=== PATIENT | female | born 1990 | race Caucasian/White ===

== ENCOUNTER 2021-04-29 12:41 | Emergency (ER) | payer OTHER, SELFPAY ==
--- NOTE | 2021-04-29 13:51 | ED.URI ---
HPI - URI/Sore Throat General Chief Complaint: Upper Respiratory Infection Stated Complaint: Chest Congestion Time Seen by Provider: 04/29/21 13:55 Source: patient Mode of arrival: ambulatory Limitations: no limitations History of Present Illness HPI Narrative: 31-year-old female presented for complaint of chest congestion worsening over the past few days. She endorses she was Covid positive about 3 weeks ago. She has been using an inhaler, and a eval with our Covid testfter which she developed thrush, and has a prescription to start nystatin. Endorses raw throat, denies headache, dizziness, body aches, sob, fatigue, fever or chills at this time. Related Data Home Medications Medication Instructions Recorded Confirmed cranberry fruit concentrate 250 mg 250 mg PO TID 06/16/20 04/29/21 chewable tablet fluticasone propionate [Flovent INHALATION 04/29/21 HFA] Allergies Allergy/AdvReac Type Severity Reaction Status Date / Time No Known Allergies Allergy Verified 04/29/21 13:07 Review of Systems Review of Systems: CONSTITUTIONAL: Denies malaise, chills, sweats, fever. EYES: Denies visual changes, redness, or discharge. ENT: Endorses chest congestion provider but this is likely viral illness, no antibiotic is needed at this time. Treatment is aimed toward your specific symptoms. You must treat your symptoms in order to feel better while the virus runs it's course. Recommend antihistamine such as Benadryl at night time and Claritin/Zyrtec/Meryl during the day Use inhaler as needed for cough, wheezing, shortness of breath or chest tightness. -Hot steamy showers in the morning to help open up your sinuses -Hot tea with lemon and honey. A teaspoon of honey may help as a cough suppressant. -Increase fluid intake Frequent hand washing or hand paste thinner is one of the best ways to prevent spread of infection. Forearm are not Covid too many tomorrow denies rhinorrhea, sinus pain, otalgia and sore throat. CARDIOVASCULAR: Denies chest pain, palpitations, or edema. RESPIRATORY: Reports cough, post nasal drainage. Denies dyspnea. GASTROINTESTINAL: Denies abdominal pain, nausea, vomiting, diarrhea SKIN: Denies rash or itching. MUSCULOSKELETAL: Denies myalgia. NEUROLOGIC: Denies headache. [facility] Past Medical History Medical History Acid reflux Asthma History of UTI Surgical History Surgical History [place] teeth removed Family History Family History Mother Carcinoma of colon patient states she has regular colonoscopies due to history Grandparent Carcinoma of colon Grandparent Cerebrovascular accident Social History Social History Smoking status: Never smoker Alcohol intake: current Drinks per week: 4 Substance use: never Exam Narrative: GENERAL: Well-appearing, well-nourished, and in no acute distress. HEAD: Normocephalic, atraumatic. EYES: EOMI. No redness or drainage. Conjunctivae normal. ENT: Mucous membranes pink and moist. No rhinorrhea. TMs normal bilaterally. Throat normal. Uvula midline. NECK: Normal AROM. Supple. No lymphadenopathy. CHEST: No respiratory distress. Clear to auscultation. HEART: Regular rate and rhythm. No murmur appreciated. Normal peripheral pulses. ABDOMEN: Soft, nontender, nondistended, normal active bowel sounds. MUSCULOSKELETAL: No bony tenderness. EXTREMITIES: Normal range of motion. No edema. SKIN: Warm, dry, no rash. Capillary refill normal. Normal skin turgor. NEURO: No focal deficits. Alert and oriented x3. Gait steady. PSYCH: Normal affect. No signs of depression or anxiety. Course Course Emergency Course: Patient is aware of diagnosis, understands and agrees to treatment plan. Anticipatory guidance given. Jc
[2021-04-29 14:28] VITALS: BP 144/78; PULSE 108; RESP 16; TEMP 36.9; O2SAT 100
== END 2021-04-29 14:20 | disposition home or self-care (01) ==
PROVIDERS: Emergency Provider Nurse Practitioner Family; PCP Family Medicine
DX: U09.9 Post COVID-19 condition, unspecified (principal); J02.9 Acute pharyngitis, unspecified; K21.9 Gastro-esophageal reflux disease without esophagitis; J45.909 Unspecified asthma, uncomplicated
CPT/HCPCS: 99211; G0463

== ENCOUNTER 2022-03-08 13:54 | Outpatient (CLI) | payer OTHER, SELFPAY ==
[2022-03-08 15:18] LABS: Basophils Percent Auto 0.2 % (0.2-1.2); Eosinophils Percent Auto 0.3 % (0-4.4); Hematocrit 36.8 % (37.0-47.0); Hemoglobin 12.6 g/dL (12.0-15.0); Immature Granulocyte Absolute 0.06 K/mm3 (0.00-0.031); Immature Granulocyte Percent A 0.6 % (0-0.5); Lymphocytes Absolute Auto 1.32 K/mm3 (0.9-3.2); Lymphocytes Percent Auto 13.1 % (18.3-44.2); Mean Corpuscular HGB Conc 34.2 g/dl (32-36); Mean Corpuscular Hemoglobin 32.6 pg (26-34); Mean Corpuscular Volume 95.1 fl (80-100); Mean Platelet Volume 9.1 fl (7.4-10.4); Monocytes Absolute Auto 0.3 K/mm3 (0.1-0.6); Neutrophils Absolute Auto 8.4 K/mm3 (1.3-6.7); Neutrophils Percent Auto 82.8 % (45.5-73.1); Platelet Count Result 212 k/mm3 (150-375); Red Blood Count 3.87 M/mm3 (4.2-5.4); Red Cell Distribution Width 13.2 % (11.5-14.5); White Blood Count 10.1 K/mm3 (4.5-10.0)
[2022-03-08 15:26] LABS: Glucose 1 Hour PP 50gm Dose 148 mg/dL
[2022-03-09] MEDS: RHO(D) IMMUNE GLOBULIN 300 MCG/2 ML SYRINGE IM (11:42)
== END 2022-03-08 13:55 | disposition home or self-care (01) ==
LOC: ANHLAB 13:56
PROVIDERS: PCP Family Medicine; Visit Provider Obstetrics & Gynecology
DX: Z34.00 Encounter for supervision of normal first pregnancy, unspecified trimester (principal)
CPT/HCPCS: 36415; 82947; 85025; 85461; 86850; 86900; 86901; 90384; 96372; J2790

== ENCOUNTER 2022-03-12 06:58 | Outpatient (CLI) | payer OTHER, SELFPAY ==
[2022-03-12 07:38] LABS: Glucose Fasting Gestational 90 mg/dL (>/=95)
[2022-03-12 09:06] LABS: Glucose 1 Hour Gest 172 mg/dL (>/=180)
[2022-03-12 10:10] LABS: Glucose 2 Hour Gest 145 mg/dL (>/= 155)
[2022-03-12 10:59] LABS: Glucose 3 Hour Gest 130 mg/dL (>/=140)
== END 2022-03-12 06:59 | disposition home or self-care (01) ==
LOC: ANHLAB 06:59
PROVIDERS: PCP Family Medicine; Visit Provider Obstetrics & Gynecology
DX: O24.419 Gestational diabetes mellitus in pregnancy, unspecified control (principal)
CPT/HCPCS: 36415; 82951; 82952

== ENCOUNTER 2023-02-28 02:09 | Day surgery (SDC) | payer OTHER, SELFPAY ==
[2023-02-19 13:40] VITALS: BMI 19.5
--- NOTE | 2023-02-24 09:02 | SUR.PREOP ---
Patient called regarding on earlier appointment time and upcoming procedure. Reviewed preop instructions, appointment times, and procedure prep.
--- NOTE | 2023-02-26 11:48 | SUR.PREOP ---
Patient called regarding upcoming procedure. Reviewed preop instructions, appointment times, and procedure prep.
[2023-02-28 08:46] VITALS: BP 110/68; PULSE 88; RESP 18; TEMP 36.7; O2SAT 100; BMI 18.4
[2023-02-28] MEDS: LACTATED RINGERS 1,000 ML 150 ML IV CONT (09:26)
--- NOTE | 2023-02-28 09:56 | P.PNAN_ITS ---
Anes - Initial Pre Proc Eval Procedure: Operation Date: 02/28/23 10:00 Proposed Procedures p Colonoscopy - Yossi Contreras MD Date/Time: 02/28/23 09:56 Surgeon: Yossi Contreras MD Pre Op Diagnosis: Left Lower Quadrant Pain, Family History of Colon Patient Data Age: 33 Gender: F Height: 1.68 m Weight: 51.9 kg Last Vital Signs Temp 98.1 F 02/28/23 08:46 Pulse 88 02/28/23 08:46 Resp 18 02/28/23 08:46 BP 110/68 02/28/23 08:46 Pulse Ox 100 02/28/23 08:46 O2 Del Method Room Air 02/28/23 08:46 Allergies Allergy/AdvReac Type Severity Reaction Status Date / Time No Known Allergies Allergy Verified 02/19/23 13:40 Home Medications Medication Instructions Recorded Confirmed Type prenat.vits,ezekiel,eok-ubte-lxytf 1 tablet PO DAILY 10/30/21 02/19/23 History Rizmnoaeaiwuj-Hvnodqgcdlejewg-F.thermophilus 1 cap PO DAILY 01/17/23 02/19/23 History 3 billion cell capsule (Advanced Probiotic-14) calcium carb-Ca gluc 500 mg 1 tablet PO DAILY 02/19/23 02/19/23 History calcium-magnesium ox-Mg gluc 250 mg tablet (Calcium Magnesium) Patient hx anesthesia problems: none Family hx anesthesia problems: none Results Review: All pre-operative results and documents have been reviewed as part of the pre- operative evaluation. [facility] Past Medical History Medical History Acid reflux Asthma History of UTI Surgical History Surgical History [place] teeth removed Family History Family History Mother Carcinoma of colon patient states she has regular colonoscopies due to history Grandparent Carcinoma of colon Grandparent Cerebrovascular accident Social History Social History Smoking status: Never smoker Alcohol intake: current Drinks per week: 1 Substance use: never Substance use type: does not use Living arrangements: with family Spiritual care concerns: No Anes - Eval Final PreProcedure Day of Procedure 02/28/23 09:56 Patient weight: normal Heart: regular rate and rhythm Lungs: clear to auscultation Airway: Mallampati scale class II Neurological: alert and oriented Last oral intake: >/= 8 hours ASA classification: II Emergent: no Anesthetic plan: proceed Anesthesia type and monitoring: general GIVS and standard monitoring Results Review: All pre-operative results and documents have been reviewed as part of the pre- operative evaluation. Informed Consent: The patient's anesthetic plan and its attendant risks and benefits were discussed with the patient/family/POA. Questions were solicited and answers provided to the satisfaction of the patient/family/POA.
--- NOTE | 2023-02-28 09:57 | PM.HPGS ---
History of Present Illness History of Present Illness Consent: Risks, benefits, and alternatives have been discussed and questions answered. Patient agrees to proceed with procedure. Chief complaint: Left Lower Quadrant Pain, Family History of Colon Narrative: Windy Reyna is a 33 year old female with 2 weeks of intermittent llq pain but now gone, also remote history of mother with cancerous polyp and grandmother with colon cancer- patient had her first colonoscopy more than 10 years ago when mother had that polyp removed. Review of Systems Constitutional: Constitutional: Denies headache(s) and Denies weakness Eyes: Eyes: Denies blurry vision ENT: Reports Normal hearing present, Denies headache(s) and Denies neck pain Cardiovascular: Cardiovascular: Denies chest pain and Denies dyspnea Respiratory: Respiratory: Denies dyspnea Gastrointestinal: Gastrointestinal: Reports no additional gastrointestinal complaints Genitourinary: Genitourinary: Denies dysuria Musculoskeletal: Musculoskeletal: Denies neck pain Integumentary/Breasts: Skin/Breast: Denies dry skin Neurologic: Reports Normal hearing present, Denies headache(s) and Denies weakness Psychiatric: Psychiatric: Denies anxiety Endocrine: Endocrine: Denies change in body appearance Hematologic/Lymphatic: Hematologic/Lymphatic: Denies easy bleeding Allergic/Immunologic: Allergic/Immunologic: Denies urticaria PMFSH Past Medical History Medical History (Updated 02/28/23 @ 09:58 by Yossi Contreras MD) Acid reflux Asthma Family history of colon cancer History of UTI LLQ pain Surgical History Surgical History [place] teeth removed Family History Family History Mother Carcinoma of colon patient states she has regular colonoscopies due to history Grandparent Carcinoma of colon Grandparent Cerebrovascular accident Social History Social History Smoking status: Never smoker Alcohol intake: current Drinks per week: 1 Substance use: never Substance use type: does not use Living arrangements: with family Spiritual care concerns: No Meds Home Medications and Allergies Home Medications Medication Instructions Recorded Confirmed Type prenat.vits,ezekiel,hmi-hjea-leuyp 1 tablet PO DAILY 10/30/21 02/19/23 History Jmkorbaqfpvej-Pehnzjpjssechgi-Z.thermophilus 1 cap PO DAILY 01/17/23 02/19/23 History 3 billion cell capsule (Advanced Probiotic-14) calcium carb-Ca gluc 500 mg 1 tablet PO DAILY 02/19/23 02/19/23 History calcium-magnesium ox-Mg gluc 250 mg tablet (Calcium Magnesium) Allergies Allergy/AdvReac Type Severity Reaction Status Date / Time No Known Allergies Allergy Verified 02/19/23 13:40 Vital Signs Vital Signs - 24 hr 02/28/23 08:46 Temperature 98.1 F Pulse Rate 88 Respiratory Rate 18 Blood Pressure 110/68 Pulse Oximetry 100 Oxygen Delivery Room Air Exam Const: General: comfortable and no acute distress HENMT: Face/Nose/Sinus: Normal nares present Eyes: General: appearance normal, both eyes and all related structures Neck: Neck: no JVD Resp: Auscultation: clear to auscultation bilaterally Cardio: Rate: regular rate Rhythm: regular rhythm GI: Inspection: non-distended GI Palp: Yes Soft to palpation Skin: General skin exam: normal color Neuro: General: gait normal Speech: normal speech Extrem: General: normal to inspection Psych: Mental Status: mental status grossly normal Assessment and Plan Assessment and plan (1) LLQ pain: Code(s): R10.32 - Left lower quadrant pain Status: Acute Assessment and Plan: colonoscopy (2) Family history of colon cancer: Code(s): Z80.0 - Family history of malignant neoplasm of digestive organs Status
[2023-02-28 10:20] VITALS: BP 107/64; PULSE 76; RESP 18; O2SAT 100
[2023-02-28 10:30] VITALS: BP 94/59; PULSE 76; RESP 22; O2SAT 100
[2023-02-28 10:38] VITALS: BP 119/74; PULSE 76; RESP 23; O2SAT 100
== END 2023-02-28 10:43 | disposition home or self-care (01) ==
PROVIDERS: PCP Family Medicine; Visit Provider Internal Medicine Gastroenterology
PROC: 0DJD8ZZ Inspection of Lower Intestinal Tract, Via Natural or Artificial Opening Endoscopic (ICD-10-PCS; CPT 45378; principal; 2023-02-28 10:00)
DX: K64.8 Other hemorrhoids (principal); Z80.0 Family history of malignant neoplasm of digestive organs
CPT/HCPCS: 45378; J2001; J2704; J7120